=== PATIENT | female | born 1985 | race American Indian/Alaskan Native ===

== ENCOUNTER 2020-05-21 18:38 | Inpatient (IN) | payer OTHER ==
[2020-05-21] MEDS ORDERED: IBUPROFEN 600 MG TAB PO ONE (20:32)
[2020-05-21] MEDS ORDERED: ONDANSETRON 4 MG/2 ML INJ IV ONE ×2 (20:33→20:37)
[2020-05-21] MEDS ORDERED: SODIUM CHLORIDE 0.9% 1000 ML 1,000 ML IV ONE (20:37)
[2020-05-21] MEDS ORDERED: KETOROLAC 30 MG/1 ML INJ IV ONE (20:38)
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
[2020-05-21 21:20] LABS: Basophils % (Auto) 0.4 % (0.0-1.8); Hematocrit 43.6 % (30.3-42.9); Hemoglobin 14.7 gm/dl (10.1-14.3); Lymphocytes # (Auto) 1.6 K/mm3 (1.2-5.4); Mean Corpuscular HGB Conc 34 % (30-34); Mean Corpuscular Volume 96 fl (79-97); Monocytes # (Auto) 0.9 K/mm3 (0.0-0.8); Platelet Count 250 K/mm3 (140-440); Red Blood Count 4.52 M/mm3 (3.65-5.03); Red Cell Distribution Width 13.9 % (13.2-15.2)
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
[2020-05-21 21:24] LABS: Albumin 4.3 g/dL (3.9-5); BUN/Creatinine Ratio 10; Bilirubin,Direct 0.4 mg/dL (0-0.2); Blood Urea Nitrogen 8 mg/dL (7-17); Calcium 9.2 mg/dL (8.4-10.2); Hemolysis Index 956
[2020-05-21 21:50] LABS: Alanine Aminotransferase 9 units/L (7-56)
[2020-05-21] MEDS ORDERED: SODIUM CHLORIDE 0.9% 1000 ML IV SOLN IV ONE (21:57)
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
[2020-05-21] MEDS ORDERED: HYDROmorphone 2 MG/1 ML INJ IV ONE (22:02)
[2020-05-21 22:44] LABS: Bacteria,Urine 1+ /HPF (Negative); Bilirubin,Urine NEG (Negative); Blood,Urine SM (Negative); Color,Urine Yellow (Yellow); Mucus,Urine 3+ /HPF
--- NOTE | 2020-05-22 00:25 | Cat Scan Report ---
CT ABDOMEN AND PELVIS WITH CONTRAST HISTORY: Fever, flank pain COMPARISON: None TECHNIQUE: Routine abdominal and pelvic CT exam performed following intravenous contrast administrat ion. Patient received 100 mm IV Omnipaque 300. All CT scans at this location are performed using CT d ose reduction for ALARA by means of automated exposure control. FINDINGS: CT ABDOMEN: Lung Bases: No significant abnormality. Liver: No significant abnormality. Biliary: No significant abnormality. Spleen: No significant abnormality. Unenlarged. Pancreas: No significant abnormality. Adrenals: No significant abnormality. Portable Kidneys: There is a striated nephrogram appearance in the right kidney. There is no hydronep hrosis. Lymphatics: No lymphadenopathy. Vasculature: No significant abnormality. Bowel/Peritoneum: No significant abnormality. No free air. No free fluid. Normal appendix. CT PELVIC: : Small amount free fluid in the pelvis, likely physiologic free fluid. 2 cm right ovarian cyst not ed. Lymphatics: No lymphadenopathy. Osseous Structures: No aggressive appearing osseous lesions. Additional Findings: None IMPRESSION: 1. Striated nephrogram appearance of the right kidney likely indicating pyelonephritis given the prov ided history. Signer Name: Sid Monreal MD Signed: 05/22/2020 12:20 AM Workstation Name: [id number]
[2020-05-22] MEDS ORDERED: SODIUM CHLORIDE 0.9% 1000 ML 1,000 ML IV ONE ×2 (01:24)
[2020-05-22] MEDS ORDERED: SODIUM CHLORIDE 0.9% 1000 ML 2,000 ML ONE (01:41)
[2020-05-22] MEDS ORDERED: ACETAMINOPHEN 325 MG TAB PO PRN (01:44)
[2020-05-22] MEDS ORDERED: ONDANSETRON 4 MG/2 ML INJ IV PRN (01:44)
[2020-05-22] MEDS ORDERED: MAGNESIUM HYDROXIDE (MOM) ORAL LIQD UDC PO PRN (01:44)
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
[2020-05-22] MEDS: MORPHINE 2 MG/1 ML INJ IV PRN ×4 (06:08→21:34)
[2020-05-22] MEDS ORDERED: KETOROLAC 30 MG/1 ML INJ IV NR (08:15)
[2020-05-22] MEDS: SODIUM CHLORIDE 0.9% 1000 ML 1,000 ML IV SCH ×2 (10:00→21:46)
--- NOTE | 2020-05-22 10:29 | Event Note ---
Date: 05/22/20 Patient seen on a medical floor after admission. This is a follow-up from an admission earlier this morning. We will continue to plan as outlined in H&P. Plan of care explained to the patient and total visit time equals 35 minutes with greater than 50% spent on coordination of care and counseling.
[2020-05-22] MEDS: ONDANSETRON 4 MG/2 ML INJ IV PRN ×3 (11:41→23:13)
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
[2020-05-22] MEDS: cefTRIAXone/NS 2 GM/100 ML 2 GM/100 ML BAG IV SCH (16:09)
[2020-05-22] MEDS: ENOXAPARIN 40 MG/0.4 ML INJ SUB-Q SCH ×2 (21:38→21:43)
[2020-05-22] MEDS ORDERED: HYDROmorphone 1 MG/1 ML INJ IV ONE (23:16)
[2020-05-23] MEDS: MORPHINE 2 MG/1 ML INJ IV PRN ×4 (05:23→19:53)
[2020-05-23] MEDS: SODIUM CHLORIDE 0.9% 1000 ML 1,000 ML IV SCH (05:29)
[2020-05-23 06:28] LABS: Basophils % (Auto) 0.3 % (0.0-1.8); Eosinophils % (Auto) 0.2 % (0.0-4.3); Hemoglobin 11.8 gm/dl (10.1-14.3); Lymphocytes # (Auto) 1.6 K/mm3 (1.2-5.4); Lymphocytes % (Auto) 19.3 % (13.4-35.0); Mean Corpuscular HGB Conc 35 % (30-34); Mean Corpuscular Volume 95 fl (79-97); Monocytes # (Auto) 0.9 K/mm3 (0.0-0.8); Monocytes % (Auto) 11.6 % (0.0-7.3); Platelet Count 189 K/mm3 (140-440); Red Blood Count 3.59 M/mm3 (3.65-5.03); Red Cell Distribution Width 13.8 % (13.2-15.2)
[2020-05-23 06:37] LABS: INR 1.13 (0.87-1.13)
[2020-05-23 06:49] LABS: Blood Urea Nitrogen 2 mg/dL (7-17); Calcium 8.6 mg/dL (8.4-10.2); Hemolysis Index 3
[2020-05-23 06:52] LABS: BUN/Creatinine Ratio 3
--- NOTE | 2020-05-23 08:07 | Progress Note ---
Assessment and Plan Assessment and plan: Sepsis: present on admission with fever, tachycardia. Etiology secondary to UTI. Right pyelonephritis. Urinalysis consistent with UTI. Urine culture pending. CT was consistent with right pyelonephritis. History Interval history: No new issues Hospitalist Physical - Constitutional Vitals: Temp Pulse Resp BP Pulse Ox 98.2 F 69 16 111/79 100 05/23/20 05:03 05/23/20 05:03 05/23/20 05:03 05/23/20 05:03 05/23/20 05:03 General appearance: Present: mild distress (Secondary to pain), well-nourished - EENT Eyes: Present: PERRL, EOM intact ENT: hearing intact, clear oral mucosa, dentition normal - Neck Neck: Present: supple, normal ROM - Respiratory Respiratory effort: normal Respiratory: bilateral: CTA - Cardiovascular Rhythm: regular Heart Sounds: Present: S1 & S2. Absent: gallop, rub - Extremities Extremities: no ischemia, No edema, Full ROM - Abdominal General gastrointestinal: soft, non-tender, non-distended, normal bowel sounds - Integumentary Integumentary: Present: clear, warm, dry - Neurologic Neurologic: CNII-XII intact, moves all extremities Results - Labs CBC & Chem 7: 05/23/20 06:11 05/23/20 06:11 Labs: Laboratory Last Values WBC 8.2 K/mm3 (4.5-11.0) 05/23/20 06:11 RBC 3.59 M/mm3 (3.65-5.03) L 05/23/20 06:11 Hgb 11.8 gm/dl (10.1-14.3) 05/23/20 06:11 Hct 34.0 % (30.3-42.9) D 05/23/20 06:11 MCV 95 fl (79-97) 05/23/20 06:11 MCH 33 pg (28-32) H 05/23/20 06:11 MCHC 35 % (30-34) H 05/23/20 06:11 RDW 13.8 % (13.2-15.2) 05/23/20 06:11 Plt Count 189 K/mm3 (140-440) 05/23/20 06:11 Lymph % (Auto) 19.3 % (13.4-35.0) 05/23/20 06:11 [place] % (Auto) 11.6 % (0.0-7.3) H 05/23/20 06:11 Eos % (Auto) 0.2 % (0.0-4.3) 05/23/20 06:11 Baso % (Auto) 0.3 % (0.0-1.8) 05/23/20 06:11 Lymph # (Auto) 1.6 K/mm3 (1.2-5.4) 05/23/20 06:11 [place] # (Auto) 0.9 K/mm3 (0.0-0.8) H 05/23/20 06:11 Eos # (Auto) 0.0 K/mm3 (0.0-0.4) 05/23/20 06:11 Baso # (Auto) 0.0 K/mm3 (0.0-0.1) 05/23/20 06:11 Seg Neutrophils % 68.6 % (40.0-70.0) 05/23/20 06:11 Seg Neutrophils # 5.6 K/mm3 (1.8-7.7) 05/23/20 06:11 PT 14.6 Sec. (12.2-14.9) 05/23/20 06:11 INR 1.13 (0.87-1.13) 05/23/20 06:11 Sodium 137 mmol/L (137-145) D 05/23/20 06:11 Potassium 3.7 mmol/L (3.6-5.0) 05/23/20 06:11 Chloride 104.5 mmol/L (98-107) 05/23/20 06:11 Carbon Dioxide 26 mmol/L (22-30) 05/23/20 06:11 Anion Gap 10 mmol/L 05/23/20 06:11 BUN 2 mg/dL (7-17) L 05/23/20 06:11 Creatinine 0.6 mg/dL (0.6-1.2) 05/23/20 06:11 Estimated GFR > 60 ml/min 05/23/20 06:11 BUN/Creatinine Ratio 3 % 05/23/20 06:11 Glucose 101 mg/dL (65-100) H 05/23/20 06:11 Lactic Acid 1.10 mmol/L (0.7-2.0) 05/22/20 00:47 Calcium 8.6 mg/dL (8.4-10.2) 05/23/20 06:11 Total Bilirubin 0.40 mg/dL (0.1-1.2) 05/21/20 20:43 Direct Bilirubin 0.4 mg/dL (0-0.2) H 05/21/20 20:43 Indirect Bilirubin 0.0 mg/dL 05/21/20 20:43 AST 58 units/L (5-40) H 05/21/20 20:43 ALT 9 units/L (7-56) 05/21/20 20:43 Alkaline Phosphatase 54 units/L (35-129) 05/21/20 20:43 Total Protein 8.5 g/dL (6.3-8.2) H 05/21/20 20:43 Albumin 4.3 g/dL (3.9-5) 05/21/20 20:43 Albumin/Globulin Ratio 1.0 % 05/21/20 20:43 HCG, Qual Negative (Negative) 05/21/20 23:11 Urine Color Yellow (Yellow) 05/21/20 22:16 Urine Turbidity Slightly-cloudy (Clear) 05/21/20 22:16 Urine pH 6.0 (5.0-7.0) 05/21/20 22:16 Ur Specific [place] 1.015 (1.003-1.030) 05/21/20 22:16 Urine Protein 30 mg/dl mg/dL (Negative) 05/21/20 22:16 Urine Glucose (UA) Neg mg/dL (Negative) 05/21/20 22:16 Urine Ketones 20 mg/dL (Negative) 05/21/20 22:16 Urine Blood Sm (Negative) 05/21/20 22:16 Urine Nitrite Pos (Negative) 05/21/20 22:16 Urine Bilirubin Neg (Negative) 05/21/20 22:16 Urine Urobilinogen 2.0 mg/dL (<2.0) 05/21/20 22:16 Ur Leukocyte Esterase Sm (Negative) 05/21/20 22:16 Urine WBC (Auto) 59.0 /HPF (0.0-6.0) H 05/21/20 22:16 Urine RBC (Auto) 9.0 /HPF (0.0-6.0) 05/21/20 22:16 U Epithel Cells (Auto) 6.0 /HPF (0-13.0) 05/21/20 22:16 Urine Bacteria (Auto) 1+ /HPF (Negative) 05/21/20 22:16 Urine Mucus 3+ /HPF 05/21/20 22:16 Microbiology: Microbiology 05/21/20 23:40 Peripheral/Venous Blood Culture - Preliminary NO GROWTH AFTER 24 HOURS 05/21/20 23:11 Peripheral/Venous Blood Culture - Preliminary NO GROWTH AFTER 24 HOURS Duffy/IV: Voiding Method Toilet IV Catheter Type [Left Forearm Peripheral IV ] Active Medications - Current Medications Current Medications: Generic Name Dose Route Start Last Admin Trade Name Freq PRN Reason Stop Dose Admin Acetaminophen 650 mg 05/22/20 01:44 Tylenol PO Q4H PRN Pain MILD(1-3)/Fever >100.5/CASTRO Enoxaparin Sodium 40 mg 05/22/20 22:00 05/22/20 21:43 Enoxaparin SUB-Q Not Given QDAY@2200 [facility] Protocol Sodium Chloride 1,000 mls @ 125 mls/hr 05/22/20 01:45 05/23/20 05:29 Nacl 0.9% 1000 Ml IV 100 mls/hr DIRECT GILSON Administration Ceftriaxone Sodium 2 gm in 100 mls @ 200 mls/hr 05/22/20 16:00 05/22/20 21:02 Rocephin/Ns 2 Gm/100 Ml IV Infused Q24H GILSON Infusion Protocol Magnesium Hydroxide 30 ml 05/22/20 01:44 Milk Of Magnesia PO Q4H PRN Constipation Morphine Sulfate 2 mg 05/22/20 01:44 05/23/20 05:23 Morphine IV 2 mg Q4H PRN Administration Pain, Moderate (4-6) Ondansetron HCl 4 mg 05/22/20 11:30 05/22/20 23:13 Zofran IV 4 mg Q4H PRN Administration Nausea And Vomiting Sodium Chloride 10 ml 05/22/20 10:00 05/22/20 21:39 Sodium Chloride Flush Syringe 10 Ml IV 10 ml BID GILSON Administration Sodium Chloride 10 ml 05/22/20 01:44 Sodium Chloride Flush Syringe 10 Ml IV PRN PRN LINE FLUSH
[2020-05-23] MEDS: ONDANSETRON 4 MG/2 ML INJ IV PRN ×3 (09:07→19:54)
[2020-05-23] MEDS ORDERED: KETOROLAC 30 MG/1 ML INJ IV ONE (13:00)
[2020-05-23] MEDS: cefTRIAXone/NS 2 GM/100 ML 2 GM/100 ML BAG IV SCH (15:51)
[2020-05-24] MEDS: MORPHINE 2 MG/1 ML INJ IV PRN ×6 (00:48→21:28)
[2020-05-24] MEDS: ENOXAPARIN 40 MG/0.4 ML INJ SUB-Q SCH ×2 (00:49→21:24)
[2020-05-24] MEDS: SODIUM CHLORIDE 0.9% 1000 ML 1,000 ML IV SCH ×3 (00:51→17:37)
[2020-05-24] MEDS: ONDANSETRON 4 MG/2 ML INJ IV PRN ×3 (05:25→17:28)
--- NOTE | 2020-05-24 10:07 | Progress Note ---
Assessment and Plan Assessment and plan: Sepsis: present on admission with fever, tachycardia. Etiology secondary to UTI. Right pyelonephritis. Urinalysis consistent with UTI. Urine culture pending. CT was consistent with right pyelonephritis. 05/24/20. Pt. C/o right flank pain that persists. Urine culture reveals gram- negative rods. Blood cultures show no growth to date. If no significant improvement, consider urology evaluation. History Interval history: No new issues Hospitalist Physical - Constitutional Vitals: Temp Pulse Resp BP Pulse Ox 98.6 F 71 14 103/63 100 05/24/20 05:12 05/24/20 05:12 05/24/20 05:12 05/24/20 05:12 05/24/20 05:12 General appearance: Present: mild distress (Secondary to pain), well-nourished - EENT Eyes: Present: PERRL, EOM intact ENT: hearing intact, clear oral mucosa, dentition normal - Neck Neck: Present: supple, normal ROM - Respiratory Respiratory effort: normal Respiratory: bilateral: CTA - Cardiovascular Rhythm: regular Heart Sounds: Present: S1 & S2. Absent: gallop, rub - Extremities Extremities: no ischemia, No edema, Full ROM - Abdominal General gastrointestinal: soft, non-tender, non-distended, normal bowel sounds - Integumentary Integumentary: Present: clear, warm, dry - Neurologic Neurologic: CNII-XII intact, moves all extremities Results - Labs CBC & Chem 7: 05/23/20 06:11 05/23/20 06:11 Labs: Laboratory Last Values WBC 8.2 K/mm3 (4.5-11.0) 05/23/20 06:11 RBC 3.59 M/mm3 (3.65-5.03) L 05/23/20 06:11 Hgb 11.8 gm/dl (10.1-14.3) 05/23/20 06:11 Hct 34.0 % (30.3-42.9) D 05/23/20 06:11 MCV 95 fl (79-97) 05/23/20 06:11 MCH 33 pg (28-32) H 05/23/20 06:11 MCHC 35 % (30-34) H 05/23/20 06:11 RDW 13.8 % (13.2-15.2) 05/23/20 06:11 Plt Count 189 K/mm3 (140-440) 05/23/20 06:11 Lymph % (Auto) 19.3 % (13.4-35.0) 05/23/20 06:11 [place] % (Auto) 11.6 % (0.0-7.3) H 05/23/20 06:11 Eos % (Auto) 0.2 % (0.0-4.3) 05/23/20 06:11 Baso % (Auto) 0.3 % (0.0-1.8) 05/23/20 06:11 Lymph # (Auto) 1.6 K/mm3 (1.2-5.4) 05/23/20 06:11 [place] # (Auto) 0.9 K/mm3 (0.0-0.8) H 05/23/20 06:11 Eos # (Auto) 0.0 K/mm3 (0.0-0.4) 05/23/20 06:11 Baso # (Auto) 0.0 K/mm3 (0.0-0.1) 05/23/20 06:11 Seg Neutrophils % 68.6 % (40.0-70.0) 05/23/20 06:11 Seg Neutrophils # 5.6 K/mm3 (1.8-7.7) 05/23/20 06:11 PT 14.6 Sec. (12.2-14.9) 05/23/20 06:11 INR 1.13 (0.87-1.13) 05/23/20 06:11 Sodium 137 mmol/L (137-145) D 05/23/20 06:11 Potassium 3.7 mmol/L (3.6-5.0) 05/23/20 06:11 Chloride 104.5 mmol/L (98-107) 05/23/20 06:11 Carbon Dioxide 26 mmol/L (22-30) 05/23/20 06:11 Anion Gap 10 mmol/L 05/23/20 06:11 BUN 2 mg/dL (7-17) L 05/23/20 06:11 Creatinine 0.6 mg/dL (0.6-1.2) 05/23/20 06:11 Estimated GFR > 60 ml/min 05/23/20 06:11 BUN/Creatinine Ratio 3 % 05/23/20 06:11 Glucose 101 mg/dL (65-100) H 05/23/20 06:11 Lactic Acid 1.10 mmol/L (0.7-2.0) 05/22/20 00:47 Calcium 8.6 mg/dL (8.4-10.2) 05/23/20 06:11 Total Bilirubin 0.40 mg/dL (0.1-1.2) 05/21/20 20:43 Direct Bilirubin 0.4 mg/dL (0-0.2) H 05/21/20 20:43 Indirect Bilirubin 0.0 mg/dL 05/21/20 20:43 AST 58 units/L (5-40) H 05/21/20 20:43 ALT 9 units/L (7-56) 05/21/20 20:43 Alkaline Phosphatase 54 units/L (35-129) 05/21/20 20:43 Total Protein 8.5 g/dL (6.3-8.2) H 05/21/20 20:43 Albumin 4.3 g/dL (3.9-5) 05/21/20 20:43 Albumin/Globulin Ratio 1.0 % 05/21/20 20:43 HCG, Qual Negative (Negative) 05/21/20 23:11 Urine Color Yellow (Yellow) 05/21/20 22:16 Urine Turbidity Slightly-cloudy (Clear) 05/21/20 22:16 Urine pH 6.0 (5.0-7.0) 05/21/20 22:16 Ur Specific [place] 1.015 (1.003-1.030) 05/21/20 22:16 Urine Protein 30 mg/dl mg/dL (Negative) 05/21/20 22:16 Urine Glucose (UA) Neg mg/dL (Negative) 05/21/20 22:16 Urine Ketones 20 mg/dL (Negative) 05/21/20 22:16 Urine Blood Sm (Negative) 05/21/20 22:16 Urine Nitrite Pos (Negative) 05/21/20 22:16 Urine Bilirubin Neg (Negative) 05/21/20 22:16 Urine Urobilinogen 2.0 mg/dL (<2.0) 05/21/20 22:16 Ur Leukocyte Esterase Sm (Negative) 05/21/20 22:16 Urine WBC (Auto) 59.0 /HPF (0.0-6.0) H 05/21/20 22:16 Urine RBC (Auto) 9.0 /HPF (0.0-6.0) 05/21/20 22:16 U Epithel Cells (Auto) 6.0 /HPF (0-13.0) 05/21/20 22:16 Urine Bacteria (Auto) 1+ /HPF (Negative) 05/21/20 22:16 Urine Mucus 3+ /HPF 05/21/20 22:16 Microbiology: Microbiology 05/21/20 23:11 Peripheral/Venous Blood Culture - Preliminary NO GROWTH AFTER 48 HOURS 05/21/20 23:40 Peripheral/Venous Blood Culture - Preliminary NO GROWTH AFTER 48 HOURS 05/21/20 22:16 Urine,Clean Catch Urine Culture - Preliminary Gram Negative Marcus Duffy/IV: Voiding Method Toilet IV Catheter Type [Left Hand] Peripheral IV IV Catheter Type [Left Forearm Peripheral IV ] Active Medications - Current Medications Current Medications: Generic Name Dose Route Start Last Admin Trade Name Freq PRN Reason Stop Dose Admin Acetaminophen 650 mg 05/22/20 01:44 Tylenol PO Q4H PRN Pain MILD(1-3)/Fever >100.5/CASTRO Enoxaparin Sodium 40 mg 05/22/20 22:00 05/24/20 00:49 Enoxaparin SUB-Q Not Given QDAY@2200 [facility] Protocol Sodium Chloride 1,000 mls @ 125 mls/hr 05/22/20 01:45 05/24/20 08:59 Nacl 0.9% 1000 Ml IV 100 mls/hr DIRECT GILSON Administration Ceftriaxone Sodium 2 gm in 100 mls @ 200 mls/hr 05/22/20 16:00 05/23/20 19:39 Rocephin/Ns 2 Gm/100 Ml IV Infused Q24H GIL[facility] Infusion Protocol Magnesium Hydroxide 30 ml 05/22/20 01:44 Milk Of Magnesia PO Q4H PRN Constipation Morphine Sulfate 2 mg 05/22/20 01:44 05/24/20 09:26 Morphine IV 2 mg Q4H PRN Administration Pain, Moderate (4-6) Ondansetron HCl 4 mg 05/22/20 11:30 05/24/20 09:32 Zofran IV 4 mg Q4H PRN Administration Nausea And Vomiting Sodium Chloride 10 ml 05/22/20 10:00 05/24/20 00:49 Sodium Chloride Flush Syringe 10 Ml IV 10 ml BID GILSON Administration Sodium Chloride 10 ml 05/22/20 01:44 Sodium Chloride Flush Syringe 10 Ml IV PRN PRN LINE FLUSH
--- NOTE | 2020-05-24 14:32 | Progress Note ---
Assessment and Plan Cultures: Blood culture 05/21/2020 no growth Urine culture: E. coli Assessment: 34 years old female with no past medical history admitted on 05/21/2020 due to 2-week history of right flank pain: #Sepsis: present on admission with fever, tachycardia; source UTI. #Right pyelonephritis: CT was consistent with right pyelonephritis. #Penicillin allergy: Causing hives. Last time 4 years ago. However, she takes amoxicillin without any reactions. Tolerating Ceftriaxone. Recommendations: Continue ceftriaxone 2 g IV daily, upon discharge switch to PO levofloxacin 500 mg daily x 5 days Sathya Avila MD, FACP [facility] ([facility] O: [phone] F: [phone] Subjective Date of service: 05/24/20 Interval history: No fever. Flank pain improving but still present. No nausea, vomiting. Tolerating antibiotics. Objective - Exam Narrative Exam: Physical Exam: Constitutional: Alert, cooperative. No acute distress Head, Ears, Nose: Normocephalic, atraumatic. External ears, nose normal Eyes: Conjunctivae/corneas clear. No icterus. No ptosis. Neck: Supple, no meningeal signs Cardiovascular: S1, S2 normal. Respiratory: Good air entry, clear to auscultation bilaterally GI: Soft, non-tender; bowel sounds normal. No peritoneal signs. Right CVA tenderness Musculoskeletal: No pedal edema, no cyanosis. Skin: No rash or abscess Hem/Lymphatic: No palpable cervical or supraclavicular nodes. No lymphangitis Psych: Mood ok. Affect normal Neurological: Awake, alert, oriented. No gross abnormality - Constitutional Vitals: Vital Signs Temp Pulse Resp BP Pulse Ox 98.6 F 71 14 103/63 100 05/24/20 05:12 05/24/20 05:12 05/24/20 05:12 05/24/20 05:12 05/24/20 05:12 Temperature -Last 24 Hours Temperature 98.6 F Temperature 98.6 F Temperature 97.3 F - Labs CBC & Chem 7: 05/23/20 06:11 05/23/20 06:11
[2020-05-24] MEDS: cefTRIAXone/NS 2 GM/100 ML 2 GM/100 ML BAG IV SCH (16:30)
[2020-05-25] MEDS: MORPHINE 2 MG/1 ML INJ IV PRN ×2 (02:22→09:12)
[2020-05-25] MEDS: SODIUM CHLORIDE 0.9% 1000 ML 1,000 ML IV SCH ×2 (02:22→09:18)
--- NOTE | 2020-05-25 07:58 | Progress Note ---
Assessment and Plan Assessment and plan: Sepsis: present on admission with fever, tachycardia. Etiology secondary to UTI. Right pyelonephritis. Urinalysis consistent with UTI. Urine culture pending. CT was consistent with right pyelonephritis. 05/24/20. Pt. C/o right flank pain that persists. Urine culture reveals gram- negative rods. Blood cultures show no growth to date. If no significant improvement, consider urology evaluation. 05/25/2020; patient admitted for pyelonephritis and currently on IV ceftriaxone. Urine culture grew E. coli. Will discharge patient with p.o. Levaquin. History Interval history: No issues overnight Hospitalist Physical - Physical exam Narrative exam: Not in cardiopulmonary distress. The patient appeared well nourished and normally developed. Vital signs as documented. Head exam is unremarkable. No scleral icterus . Neck is without jugular venous distension, thyromegaly, or carotid bruits. Lungs are clear to auscultation. Cardiac exam reveals regular rate and Rhythm. Abdominal exam reveals normal bowel sounds, nontender, no organomegaly. Extremities are nonedematous and both femoral and pedal pulses are normal. INVENTORY CONTROL/SHIPPING RECEIVING: Alert and oriented 3. No focal weakness. - Constitutional Vitals: Temp Pulse Resp BP Pulse Ox 98.3 F 67 18 112/75 100 05/25/20 04:36 05/25/20 04:36 05/25/20 06:10 05/25/20 04:36 05/25/20 04:36 General appearance: Present: mild distress (Secondary to pain), well-nourished Results - Labs CBC & Chem 7: 05/23/20 06:11 05/23/20 06:11 Labs: Laboratory Last Values WBC 8.2 K/mm3 (4.5-11.0) 05/23/20 06:11 RBC 3.59 M/mm3 (3.65-5.03) L 05/23/20 06:11 Hgb 11.8 gm/dl (10.1-14.3) 05/23/20 06:11 Hct 34.0 % (30.3-42.9) D 05/23/20 06:11 MCV 95 fl (79-97) 05/23/20 06:11 MCH 33 pg (28-32) H 05/23/20 06:11 MCHC 35 % (30-34) H 05/23/20 06:11 RDW 13.8 % (13.2-15.2) 05/23/20 06:11 Plt Count 189 K/mm3 (140-440) 05/23/20 06:11 Lymph % (Auto) 19.3 % (13.4-35.0) 05/23/20 06:11 [place] % (Auto) 11.6 % (0.0-7.3) H 05/23/20 06:11 Eos % (Auto) 0.2 % (0.0-4.3) 05/23/20 06:11 Baso % (Auto) 0.3 % (0.0-1.8) 05/23/20 06:11 Lymph # (Auto) 1.6 K/mm3 (1.2-5.4) 05/23/20 06:11 [place] # (Auto) 0.9 K/mm3 (0.0-0.8) H 05/23/20 06:11 Eos # (Auto) 0.0 K/mm3 (0.0-0.4) 05/23/20 06:11 Baso # (Auto) 0.0 K/mm3 (0.0-0.1) 05/23/20 06:11 Seg Neutrophils % 68.6 % (40.0-70.0) 05/23/20 06:11 Seg Neutrophils # 5.6 K/mm3 (1.8-7.7) 05/23/20 06:11 PT 14.6 Sec. (12.2-14.9) 05/23/20 06:11 INR 1.13 (0.87-1.13) 05/23/20 06:11 Sodium 137 mmol/L (137-145) D 05/23/20 06:11 Potassium 3.7 mmol/L (3.6-5.0) 05/23/20 06:11 Chloride 104.5 mmol/L (98-107) 05/23/20 06:11 Carbon Dioxide 26 mmol/L (22-30) 05/23/20 06:11 Anion Gap 10 mmol/L 05/23/20 06:11 BUN 2 mg/dL (7-17) L 05/23/20 06:11 Creatinine 0.6 mg/dL (0.6-1.2) 05/23/20 06:11 Estimated GFR > 60 ml/min 05/23/20 06:11 BUN/Creatinine Ratio 3 % 05/23/20 06:11 Glucose 101 mg/dL (65-100) H 05/23/20 06:11 Lactic Acid 1.10 mmol/L (0.7-2.0) 05/22/20 00:47 Calcium 8.6 mg/dL (8.4-10.2) 05/23/20 06:11 Total Bilirubin 0.40 mg/dL (0.1-1.2) 05/21/20 20:43 Direct Bilirubin 0.4 mg/dL (0-0.2) H 05/21/20 20:43 Indirect Bilirubin 0.0 mg/dL 05/21/20 20:43 AST 58 units/L (5-40) H 05/21/20 20:43 ALT 9 units/L (7-56) 05/21/20 20:43 Alkaline Phosphatase 54 units/L (35-129) 05/21/20 20:43 Total Protein 8.5 g/dL (6.3-8.2) H 05/21/20 20:43 Albumin 4.3 g/dL (3.9-5) 05/21/20 20:43 Albumin/Globulin Ratio 1.0 % 05/21/20 20:43 HCG, Qual Negative (Negative) 05/21/20 23:11 Urine Color Yellow (Yellow) 05/21/20 22:16 Urine Turbidity Slightly-cloudy (Clear) 05/21/20 22:16 Urine pH 6.0 (5.0-7.0) 05/21/20 22:16 Ur Specific [place] 1.015 (1.003-1.030) 05/21/20 22:16 Urine Protein 30 mg/dl mg/dL (Negative) 05/21/20 22:16 Urine Glucose (UA) Neg mg/dL (Negative) 05/21/20 22:16 Urine Ketones 20 mg/dL (Negative) 05/21/20 22:16 Urine Blood Sm (Negative) 05/21/20 22:16 Urine Nitrite Pos (Negative) 05/21/20 22:16 Urine Bilirubin Neg (Negative) 05/21/20 22:16 Urine Urobilinogen 2.0 mg/dL (<2.0) 11/13/20 22:16 Ur Leukocyte Esterase Sm (Negative) 05/21/20 22:16 Urine WBC (Auto) 59.0 /HPF (0.0-6.0) H 05/21/20 22:16 Urine RBC (Auto) 9.0 /HPF (0.0-6.0) 05/21/20 22:16 U Epithel Cells (Auto) 6.0 /HPF (0-13.0) 05/21/20 22:16 Urine Bacteria (Auto) 1+ /HPF (Negative) 05/21/20 22:16 Urine Mucus 3+ /HPF 05/21/20 22:16 Microbiology: Microbiology 05/21/20 23:11 Peripheral/Venous Blood Culture - Preliminary NO GROWTH AFTER 72 HOURS 05/21/20 23:40 Peripheral/Venous Blood Culture - Preliminary NO GROWTH AFTER 72 HOURS 05/21/20 22:16 Urine,Clean Catch Urine Culture - Final Escherichia Coli Duffy/IV: Voiding Method Toilet IV Catheter Type [Left Hand] Peripheral IV IV Catheter Type [Left Forearm Peripheral IV ] Active Medications - Current Medications Current Medications: Generic Name Dose Route Start Last Admin Trade Name Freq PRN Reason Stop Dose Admin Acetaminophen 650 mg 05/22/20 01:44 05/25/20 05:10 Tylenol PO 650 mg Q4H PRN Administration Pain MILD(1-3)/Fever >100.5/CASTRO Enoxaparin Sodium 40 mg 05/22/20 22:00 05/24/20 21:24 Enoxaparin SUB-Q Not Given QDAY@2200 [facility] Protocol Sodium Chloride 1,000 mls @ 125 mls/hr 05/22/20 01:45 05/25/20 02:22 Nacl 0.9% 1000 Ml IV 100 mls/hr DIRECT GILSON Administration Ceftriaxone Sodium 2 gm in 100 mls @ 200 mls/hr 05/22/20 16:00 05/24/20 16:30 Rocephin/Ns 2 Gm/100 Ml IV 200 mls/hr Q24H GILSON Administration Protocol Magnesium Hydroxide 30 ml 05/22/20 01:44 05/24/20 21:37 Milk Of Magnesia PO 30 ml Q4H PRN Administration Constipation Morphine Sulfate 2 mg 05/22/20 01:44 05/25/20 02:22 Morphine IV 2 mg Q4H PRN Administration Pain, Moderate (4-6) Ondansetron HCl 4 mg 05/22/20 11:30 05/24/20 17:28 Zofran IV 4 mg Q4H PRN Administration Nausea And Vomiting Sodium Chloride 10 ml 05/22/20 10:00 05/24/20 21:25 Sodium Chloride Flush Syringe 10 Ml IV 10 ml BID GILSON Administration Sodium Chloride 10 ml 05/22/20 01:44 Sodium Chloride Flush Syringe 10 Ml IV PRN PRN LINE FLUSH
[2020-05-25] MEDS: ONDANSETRON 4 MG/2 ML INJ IV PRN (09:12)
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
[2020-05-25 14:28] VITALS: BP 106/71
== END 2020-05-25 16:28 | disposition home or self-care (01) | DRG 872 ==
LOC: ED 18:38 → 3A 05-22 01:24
PROVIDERS: ADMIT Internal Medicine Geriatric Medicine; ATTEND Internal Medicine
DX: A41.9 Sepsis, unspecified organism (principal); N10 Acute pyelonephritis; N30.01 Acute cystitis with hematuria; B96.20 Unspecified Escherichia coli [E. coli] as the cause of diseases classified elsewhere; Z88.0 Allergy status to penicillin; Z88.8 Allergy status to other drugs, medicaments and biological substances; M54.5 Low back pain
CPT/HCPCS: 36415; 74177; 80048; 80076; 81001; 82140; 84703; 85025; 85610; 87040; 87076; 87086; 87186; 96374; 96375; G0378; J0696; J1170; J1650; J1885; J1956; J2270; J2405; J7030; Q9967

== ENCOUNTER 2020-06-23 17:56 | Emergency (ER) | payer SELFPAY ==
[2020-06-23 18:52] VITALS: BP 115/67
--- NOTE | 2020-06-23 19:11 | Emergency Department Report ---
ED Female HPI - General Chief complaint: Abdominal Pain Stated complaint: KIDNEY PAIN/REVISIT Time Seen by Provider: 06/23/20 18:56 Source: patient Mode of arrival: Ambulatory Limitations: No Limitations - History of Present Illness Initial comments: 34-year-old [place] female presents emergency department complaining of a reemergence of some right pain flank pain which has been worsening over the past 2 days in conjunction with some pelvic cramping and evolving dysuria reminding her of the previous infection resulting in her being admitted at this hospital a few weeks ago. She states she took all of the Levaquin as prescribed but did not utilize the pain medication due to how it made her feel. Reports no chest pain, no palpitation no hemoptysis no hematemesis hematochezia reports no no diarrhea or constipation. States that she is not as far along as bad as she was when she came to hospital in the past but she was trying to catch it before it got bad enough for her to need a another hospital admission. Radiation: R flank Severity: moderate - Related Data Previous Rx's Medication Instructions Recorded Last Taken Type Oxycodone HCl/Acetaminophen 1 each PO Q6HR PRN #12 tablet 05/25/20 Unknown Rx [Percocet 10/325 mg] levoFLOXacin [Levaquin TAB] 500 mg PO QDAY #5 tablet 05/25/20 Unknown Rx Nitrofurantoin [place]/M-Cryst 100 mg PO Q12HR #20 capsule 06/24/20 Unknown Rx [Macrobid CAP] Allergies Allergy/AdvReac Type Severity Reaction Status Date / Time Penicillins Allergy Unknown Verified 05/21/20 20:29 oxycodone AdvReac Vomiting Verified 06/23/20 22:34 tocopherol acetate AdvReac Rash Uncoded 06/13/14 15:05 ED Review of Systems ROS: Stated complaint: KIDNEY PAIN/REVISIT Other details as noted in HPI Comment: All other systems reviewed and negative ED Past Medical Hx - Past Medical History Previous Medical History?: No Hx Congestive Heart Failure: No Hx Diabetes: No Hx Psychiatric Treatment: No Hx Asthma: No Hx COPD: No Hx HIV: No - Surgical History Past Surgical History?: Yes Additional Surgical History: - Social History Smoking Status: Never Smoker Substance Use Type: None - Medications Home Medications: Home Medications Medication Instructions Recorded Confirmed Last Taken Type Oxycodone HCl/Acetaminophen 1 each PO Q6HR PRN #12 tablet 05/25/20 Unknown Rx [Percocet 10/325 mg] levoFLOXacin [Levaquin TAB] 500 mg PO QDAY #5 tablet 05/25/20 Unknown Rx Nitrofurantoin [place]/M-Cryst 100 mg PO Q12HR #20 capsule 06/24/20 Unknown Rx [Macrobid CAP] ED Physical Exam - General Limitations: No Limitations General appearance: alert, in no apparent distress - Head Head exam: Present: atraumatic, normocephalic - Eye Eye exam: Present: normal appearance, PERRL, EOMI Pupils: Present: normal accommodation - ENT ENT exam: Present: normal exam, mucous membranes moist, TM's normal bilaterally - Neck Neck exam: Present: normal inspection, full ROM - Respiratory Respiratory exam: Present: normal lung sounds bilaterally. Absent: respiratory distress, wheezes, rales, accessory muscle use, decreased breath sounds - Cardiovascular Cardiovascular Exam: Present: regular rate, normal rhythm. Absent: systolic murmur, diastolic murmur, rubs, gallop - GI/Abdominal GI/Abdominal exam: Present: soft, normal bowel sounds - Extremities Exam Extremities exam: Present: normal inspection - Back Exam Back exam: Present: normal inspection, CVA tenderness (R). Absent: muscle spasm, paraspinal tenderness, vertebral tenderness - Neurological Exam Neurological exam: Present: alert, oriented X3 - Psychiatric Psychiatric exam: Present: normal affect, normal mood - Skin Skin exam: Present: warm, dry, intact, normal color. Absent: rash ED Course Vital Signs 06/23/20 18:00 Temperature 97.9 F Pulse Rate 83 Respiratory 18 Rate Blood Pressure 115/67 O2 Sat by Pulse 99 Oximetry ED Medical Decision Making - Lab Data Result diagrams: 06/23/20 19:03 06/23/20 19:03 - Radiology Data Radiology results: report reviewed [facility] [address] [place] [address] Cat Scan Report Signed Patient: KYRA LÓPEZ MR#: [id number] : 1985 Acct:[id number] Age/Sex: 34 / F ADM Date: 06/23/20 Loc: ED Attending Dr: Ordering Physician: JESSE WEI Date of Service: 06/23/20 Procedure(s): CT abdomen pelvis wo con Accession Number(s): [id number] cc: JESSE WEI CT ABDOMEN AND PELVIS WITHOUT CONTRAST INDICATION: Right pelvic and right flank pain TECHNICAL: Multiple axial CT images of the abdomen and pelvis were acquired with out intravenous contrast. Sagittal and coronal reformats were obtained. All CTs at this facility utilize dose r eduction techniques including automated exposure control, iterative reconstruction and weight based dosing when appropriate to reduce patient radiation dose to as low as reasonable achievable. COMPARISON: CT of the abdomen and pelvis, 05/22/2020 FINDINGS: Limited imaging of the bilateral lung bases demonstrates no acute abnormality. ABDOMEN: Within the limitations of today's noncontrast study, the liver, spleen, pancreas, bilateral adrenal glands and bilateral kidneys show no evidence of acute abnormality. There is no evidence of obstructing renal or ureteral stone. There is no bowel obstruction or free fluid. The appendix is visualized and appears normal. PELVIS: The urinary bladder appears normal. No free fluid is seen within the pelvis. There is minimal sigmoid diverticulosis without evidence for diverticulitis. BONES AND SOFT TISSUES: Evaluation of bony structures demonstrates no evidence of acute bony abnormality. Soft tissue structures appear grossly normal. IMPRESSION: 1. No CT evidence of acute inflammatory or obstructive process within the abdomen or pelvis. Signer Name: Tila Navarrete MD Signed: 06/23/2020 11:30 PM Workstation Name: [id number] Transcribed By: EB Dictated By: Tila Navarrete MD Electronically Authenticated By: Tila Navarrete MD Signed Date/Time: 06/23/202329 DD/ 24 TD/TT: - Medical Decision Making This patient presents with abdominal pain of unclear etiology. A CT scan was performed to evaluate for potential causes of the abdominal pain, however, neither the clinical exam nor the CT has identified an emergent etiology for the abdominal pain. Specifically, given the benign exam, the laboratory studies, and unremarkable CT, I have a very low suspicion for appendicitis, ischemic bowel, bowel perforation, or any other life threatening disease. I have discussed with the patient the level of uncertainty with undifferentiated abdominal pain and clearly explained the need to follow-up as noted on the discharge instructions, or return to the Emergency Department immediately if the pain worsens, develops fever, persistent and uncontrollable vomiting, or for any new symptoms or concerns. Critical care attestation.: If time is entered above; I have spent that time in minutes in the direct care of this critically ill patient, excluding procedure time. ED Disposition Clinical Impression: Flank pain, UTI (urinary tract infection), Abdominal pain Disposition: TO HOME OR SELFCARE Is pt being admited?: No Does the pt Need Aspirin: No Condition: Stable Instructions: Abdominal Pain (ED), Urinalysis Test, Flank Pain, Adult Prescriptions: Nitrofurantoin [place]/M-Cryst [Macrobid CAP] 100 mg PO Q12HR #20 capsule Referrals: EDWINA KIRK MD [Primary Care Provider] - 3-5 Days
[2020-06-23 19:30] LABS: Basophils % (Auto) 0.7 % (0.0-1.8); Eosinophils % (Auto) 0.8 % (0.0-4.3); Hemoglobin 13.8 gm/dl (10.1-14.3); Lymphocytes # (Auto) 1.9 K/mm3 (1.2-5.4); Lymphocytes % (Auto) 36.8 % (13.4-35.0); Mean Corpuscular HGB Conc 35 % (30-34); Mean Corpuscular Volume 95 fl (79-97); Monocytes # (Auto) 0.4 K/mm3 (0.0-0.8); Monocytes % (Auto) 8.3 % (0.0-7.3); Platelet Count 218 K/mm3 (140-440); Red Blood Count 4.22 M/mm3 (3.65-5.03)
[2020-06-23 20:19] LABS: Alanine Aminotransferase 8 units/L (7-56); Albumin 4.3 g/dL (3.9-5); Blood Urea Nitrogen 8 mg/dL (7-17); Calcium 9.7 mg/dL (8.4-10.2); Hemolysis Index 26
[2020-06-23 20:20] LABS: BUN/Creatinine Ratio 11
[2020-06-23 20:52] LABS: Bacteria,Urine 1+ /HPF (Negative); Bilirubin,Urine NEG (Negative); Blood,Urine MOD (Negative); Color,Urine Yellow (Yellow); Mucus,Urine 2+ /HPF; Protein,Urine <15 mg/dL mg/dL (Negative)
[2020-06-23] MEDS ORDERED: oxyCODONE /ACETAMINOPHEN 5-325MG TAB PO ONE (22:31)
[2020-06-23] MEDS ORDERED: ONDANSETRON 4 MG ODT TAB PO ONE (22:35)
--- NOTE | 2020-06-23 23:34 | Cat Scan Report ---
CT ABDOMEN AND PELVIS WITHOUT CONTRAST INDICATION: Right pelvic and right flank pain TECHNICAL: Multiple axial CT images of the abdomen and pelvis were acquired without intravenous contr ast. Sagittal and coronal reformats were obtained. All CTs at this facility utilize dose reduction techniques including automated exposure control, iterative reconstruction and weight based dosing whe n appropriate to reduce patient radiation dose to as low as reasonable achievable. COMPARISON: CT of the abdomen and pelvis, 05/22/2020 FINDINGS: Limited imaging of the bilateral lung bases demonstrates no acute abnormality. ABDOMEN: Within the limitations of today's noncontrast study, the liver, spleen, pancreas, bilateral adrenal g lands and bilateral kidneys show no evidence of acute abnormality. There is no evidence of obstructin g renal or ureteral stone. There is no bowel obstruction or free fluid. The appendix is visualized an d appears normal. PELVIS: The urinary bladder appears normal. No free fluid is seen within the pelvis. There is minimal sigmoid diverticulosis without evidence for diverticulitis. BONES AND SOFT TISSUES: Evaluation of bony structures demonstrates no evidence of acute bony abnormal ity. Soft tissue structures appear grossly normal. IMPRESSION: 1. No CT evidence of acute inflammatory or obstructive process within the abdomen or pelvis. Signer Name: Tila Navarrete MD Signed: 06/23/2020 11:30 PM Workstation Name: [id number]
== END 2020-06-24 01:09 | disposition home or self-care (01) ==
LOC: ED 17:56
DX: N39.0 Urinary tract infection, site not specified (principal); Z98.890 Other specified postprocedural states
CPT/HCPCS: 36415; 74176; 80053; 81001; 84703; 85025; Q0162

== ENCOUNTER 2021-01-25 16:38 | Emergency (ER) | payer OTHER, MEDICAID ==
[2021-01-25 16:54] VITALS: BP 127/81
[2021-01-25 17:43] LABS: Bilirubin,Urine NEG (Negative); Blood,Urine NEG (Negative); Color,Urine Yellow (Yellow); Mucus,Urine FEW /HPF; Protein,Urine <15 mg/dL mg/dL (Negative); RBC,Urine < 1.0 /HPF (0.0-6.0); Urobilinogen,Urine < 2.0 mg/dL (<2.0)
== END 2021-01-25 18:30 | disposition left against medical advice (07) ==
LOC: ED 16:38
DX: R10.9 Unspecified abdominal pain (principal); R11.2 Nausea with vomiting, unspecified; Z53.21 Procedure and treatment not carried out due to patient leaving prior to being seen by health care provider
CPT/HCPCS: 81001